=== PATIENT | male | born 1940 | race Caucasian/White ===

== ENCOUNTER → 2017-02-26 | Outpatient (CLI) | payer OTHER ==
[~2017-02-26] MED LIST: ADULT LOW DOSE81 M1 PO; ASCORBIC ACID500 M3 PO; ASPIR 8181 M1 PO; Ascorbic Acid,Ester- PO; CALCIUM 500 +1 EACH PO; CALCIUM CARB1 TABLET PO; COZAAR100 MG PO; CRESTOR PO; CRESTOR5 MG; CRESTOR5 MG PO; Colace PO; DIOVAN80 MG; DIOVAN80 MG PO; DOCUSATE SODIU100 MG PO; FAMOTIDINE40 MG PO; FISH; FLOMAX0.4 MG PO; FOLIC ACID0.4 MG PO; FOLIC ACID0.8 MG PO; Folvite PO; GLIPIZIDE XL5 MG; GLUCOSAMINE S1000 MG PO; GLUCOTROL XL5 MG PO; GLUCOTROL5 MG PO; Glucosamine Sulfate PO; LEVOFLOXACIN500 MG PO; LEXAPRO10 MG PO; LOSARTAN POTAS100 MG PO; Lopressor PO; METOPROLOL SUCC25 MG; METOPROLOL TART25 MG PO; OMEPRAZOLE20 MG; OMEPRAZOLE20 MG PO; Oscal 500 w/Vitamin PO; PLAVIX75 MG PO; PROSTATE 2.4 C1 EACH PO; SENNA-TIME S T1 EACH PO; TOPROL XL25 MG PO; TRILIPIX135 MG; TRILIPIX135 MG PO; Tricor PO; Tylenol/Codeine #3 PO; VIT C-ROSE HIP500 MG PO; VITAMIN D; VITAMIN D1000 INTUN PO; VITAMIN D31000 UNIT PO; Vicodin,Norco 5/325 PO
== END | disposition home or self-care (01) ==
LOC: JMC/R 08:16
DX: C61 Malignant neoplasm of prostate (principal)
CPT/HCPCS: 77470

== ENCOUNTER 2017-03-01 07:23 | Day surgery (SDC) | payer OTHER ==
[~2017-03-01] VITALS: Ht 180.3 cm; Wt 97.5 kg
[2017-03-01 08:20] VITALS: BP 139/70
[2017-03-01 08:49] LABS: POINT-OF-CARE METER ID UU14174212
[2017-03-01 10:20] LABS: POINT-OF-CARE METER ID UU14174212; POINT-OF-CARE USER ID AHSRSCSLC11
[2017-03-01 12:51] LABS: POINT-OF-CARE METER ID UU13113675
[2017-03-01 13:15] VITALS: BP 129/70
[2017-03-01 14:15] VITALS: BP 143/80
[2017-03-01 16:30] VITALS: BP 142/76
== END 2017-03-01 17:00 | disposition home or self-care (01) ==
LOC: SDC 07:23
PROVIDERS: Radiology Radiation Oncology
DX: C61 Malignant neoplasm of prostate (principal); I25.10 Atherosclerotic heart disease of native coronary artery without angina pectoris; I10 Essential (primary) hypertension; E11.9 Type 2 diabetes mellitus without complications; E78.00 Pure hypercholesterolemia, unspecified; J44.9 Chronic obstructive pulmonary disease, unspecified; E03.9 Hypothyroidism, unspecified; Z95.5 Presence of coronary angioplasty implant and graft; Z80.0 Family history of malignant neoplasm of digestive organs; Z79.84 Long term (current) use of oral hypoglycemic drugs; Z87.891 Personal history of nicotine dependence; Z79.02 Long term (current) use of antithrombotics/antiplatelets; I25.2 Old myocardial infarction; Z86.73 Personal history of transient ischemic attack (TIA), and cerebral infarction without residual deficits
CPT/HCPCS: 76965; 77332; 77778; 82948; C2638; J0330; J0744; J1100; J1815; J2405; J3010

== ENCOUNTER → 2017-04-02 | Outpatient (CLI) | payer OTHER | END | disposition home or self-care (01) | LOC: JMC/R 08:30 | DX: Z51.0 Encounter for antineoplastic radiation therapy (principal); C61 Malignant neoplasm of prostate | CPT/HCPCS: 77290 ==

== ENCOUNTER → 2017-08-27 | Outpatient (CLI) | payer OTHER | END | disposition home or self-care (01) | DX: M17.11 Unilateral primary osteoarthritis, right knee (principal); R26.2 Difficulty in walking, not elsewhere classified; M25.561 Pain in right knee; M25.661 Stiffness of right knee, not elsewhere classified; Z74.1 Need for assistance with personal care; M62.81 Muscle weakness (generalized) | CPT/HCPCS: 97161 GP; 97165 GO; 97530 GP; 97535 GO; G8978 GP; G8979 GP; G8980 GP; G8987 GO; G8988 GO; G8989 GO ==

== ENCOUNTER 2017-09-22 20:32 | Inpatient (IN) | payer OTHER ==
[~2017-09-22] VITALS: Ht 180.3 cm; Wt 99.2 kg
[2017-09-23 06:12] VITALS: BP 137/65
[2017-09-23 10:09] LABS: HEMATOCRIT 42.4 % (38.0-50.0); HEMOGLOBIN 14.2 G/DL (12.5-16.6); MCH 33.3 PG (29.0-34.0); MCHC 33.5 G/DL (30.0-36.0); MCV 99.3 FL (86-99); PLATELET COUNT 192 K/uL (156-360); RBC DIS.WIDTH-CV 13.2 % (11.8-14.6); RBC DIS.WIDTH-SD 48.4 % (39-53); RED BLOOD COUNT 4.27 M/uL (4.00-5.50); WHITE BLOOD COUNT 9.3 K/uL (4.1-10.2)
[2017-09-23 13:08] VITALS: BP 117/52
[2017-09-23 16:25] VITALS: BP 153/67
[2017-09-23 20:02] VITALS: BP 149/68
[2017-09-23 20:51] LABS: CHLORIDE 106 MEQ/L (99-109); CREATININE 1.6 MG/DL (0.6-1.3); GFR ESTIMATE (CALCULATED) 45 mL/min/ (58.99-99999); GLUCOSE 225 mg/dL (70-99); MAGNESIUM 1.5 mg/dl (1.3-2.7); POTASSIUM 4.7 MEQ/L (3.7-5.4); SODIUM 136 MEQ/L (136-147); UREA NITROGEN (BUN) 19 mg/dL (9-23)
[2017-09-24 00:19] VITALS: BP 165/76
[2017-09-24 04:06] VITALS: BP 143/76
[2017-09-24 06:29] LABS: HEMOGLOBIN 14.1 G/DL (12.5-16.6); MCV 100.5 FL (86-99)
[2017-09-24 06:50] LABS: CHLORIDE 100 MEQ/L (99-109); CREATININE 1.6 MG/DL (0.6-1.3); GFR ESTIMATE (CALCULATED) 45 mL/min/ (58.99-99999); GLUCOSE 181 mg/dL (70-99); POTASSIUM 4.1 MEQ/L (3.7-5.4); SODIUM 133 MEQ/L (136-147); UREA NITROGEN (BUN) 18 mg/dL (9-23)
[2017-09-24 08:12] VITALS: BP 126/60
[2017-09-24] MEDS ORDERED: OXYCODONE HCL5 MG PO (09:21)
[2017-09-24] MEDS ORDERED: COUMADIN1 MG PO (09:21)
[2017-09-24 10:27] LABS: INTER. NORMALIZED RATIO 1.3
[2017-09-24 12:13] VITALS: BP 134/58
[2017-09-24 15:52] VITALS: BP 127/58
[2017-09-24 20:14] VITALS: BP 121/53
[2017-09-25] VITALS (7 sets, daily range): BP systolic 129–136; BP diastolic 58–68
[2017-09-25 06:27] LABS: HEMATOCRIT 35.9 % (38.0-50.0); HEMOGLOBIN 12.5 G/DL (12.5-16.6); MCV 98.1 FL (86-99)
[2017-09-25 06:44] LABS: INTER. NORMALIZED RATIO 1.4
[2017-09-25 06:49] LABS: CHLORIDE 101 MEQ/L (99-109); CREATININE 1.6 MG/DL (0.6-1.3); GFR ESTIMATE (CALCULATED) 45 mL/min/ (58.99-99999); GLUCOSE 145 mg/dL (70-99); POTASSIUM 4.2 MEQ/L (3.7-5.4); SODIUM 134 MEQ/L (136-147); UREA NITROGEN (BUN) 18 mg/dL (9-23)
[2017-09-26 04:32] VITALS: BP 132/60
[2017-09-26 05:55] LABS: INTER. NORMALIZED RATIO 1.4
[2017-09-26 07:41] VITALS: BP 137/63
[2017-09-26 11:28] VITALS: BP 100/58
== END 2017-09-26 14:03 | DRG 470 ==
LOC: ENRESERV 20:32 → 2SOUTH 09-23 05:25 → 3WEST 09-23 05:25 → 2SOUTH 09-23 10:55 → 3WEST 09-23 12:40
PROVIDERS: Hospitalist; Internal Medicine; Orthopaedic Surgery
PROC: 0SRC0J9 Replacement of Right Knee Joint with Synthetic Substitute, Cemented, Open Approach (ICD-10-PCS; principal; 2017-09-23)
DX: M17.11 Unilateral primary osteoarthritis, right knee (principal); I12.9 Hypertensive chronic kidney disease with stage 1 through stage 4 chronic kidney disease, or unspecified chronic kidney disease; E78.5 Hyperlipidemia, unspecified; N40.0 Benign prostatic hyperplasia without lower urinary tract symptoms; G47.30 Sleep apnea, unspecified; E11.22 Type 2 diabetes mellitus with diabetic chronic kidney disease; I25.10 Atherosclerotic heart disease of native coronary artery without angina pectoris; N18.3 Chronic kidney disease, stage 3 (moderate); F10.10 Alcohol abuse, uncomplicated; E66.9 Obesity, unspecified; Z86.73 Personal history of transient ischemic attack (TIA), and cerebral infarction without residual deficits; Z80.42 Family history of malignant neoplasm of prostate; Z95.5 Presence of coronary angioplasty implant and graft; Z79.84 Long term (current) use of oral hypoglycemic drugs; Z68.30 Body mass index [BMI] 30.0-30.9, adult
CPT/HCPCS: 71045; 73560; 80048; 82948; 83735; 85014; 85018; 85027; 85610; 97530 GP; C1713; J0690; J1650; J2250; J2405; J2795; J7030; J7050; S0020